=== PATIENT | female | born 1965 | race Caucasian/White ===

== ENCOUNTER 2017-05-22 07:17 | Inpatient (IN) | payer OTHER ==
--- NOTE | 2017-05-06 13:10 | HP ---
AMENDED REPORT NOW INCLUDES COSIGNER DESIGNATION - ESIGNED BEFORE ADJUSTMENTS CC: Dr. Emilie Clark * PREOPERATIVE HISTORY AND PHYSICAL: DATE OF PREOPERATIVE HISTORY AND PHYSICAL EXAMINATION: 05/05/17 DATE OF ADMISSION: 05/22/17 This patient is scheduled for AA admission by Dr. Chand on , 05/22/17. ATTENDING SURGEON: Catrachito Chand MD * (dictated by Jeny Grossman NP). CHIEF COMPLAINT: Recurrent left lung nodule. HISTORY OF PRESENT ILLNESS: The patient is a 51-year-old female recently evaluated by Dr. Chand for a new solitary left lung nodule. She is known to Dr. Chand status post left thoracoscopy with resection of left upper lobe lung nodule that was metastatic adenocarcinoma consistent with a primary of colon cancer in February 2014. She is status post laparoscopic sigmoid colectomy for colon cancer by Dr. Gomez in September 2011 followed by adjuvant chemotherapy. A CAT scan of the chest revealed a new lesion in the left upper lobe and a PET scan revealed that it is PET avid. She was presented at [facility] and the consensus of the group was that she should have resection of the lesion. She had one attempt at needle aspiration, which did not reveal definitive tumor. She has been followed by Dr. Clark and maintained on Xeloda chemotherapy. 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 She can go up and down two flights of stairs without stopping. She has never been a smoker. Dr. Chand has examined the patient and discussed the above findings with her and has recommended left thoracoscopy with wedge resection of the left lung nodule and possible open procedure. Dr. Chand discussed the nature of the surgical procedure, the rationale for the procedure, the relevant risks and benefits and today I reviewed the typical hospitalization, postoperative care and recovery and she has had a chance to ask questions and states that she is satisfied with the information. She will sign surgical consent on the day of surgery. PAST MEDICAL HISTORY: Significant for colon cancer status post laparoscopic sigmoid colectomy by Dr. Gomez, September 2011 followed by adjuvant chemotherapy. Laparoscopic ventral hernia repair by Dr. Gomez in June 2012 with removal of PowerPort at the same setting, left thoracoscopy with resection of left upper lobe lung nodule by Dr. Chand in February 2014 and replacement of PowerPort. Hypothyroidism. OB HISTORY: 1, para 1. She is up-to-date with breast exam, pelvic, and pap smear within the last year. She states that she gets menstrual periods about once a year. MEDICATIONS: 1. Levothyroxine 75 mcg p.o. daily. 2. Xeloda chemotherapy as ordered by Dr. Clark and she was instructed to hold the Xeloda one week preoperatively and one week postoperatively; she will take her last dose of Xeloda preoperatively on 05/14/17. 3. Vitamin D3 supplement daily. 4. Ativan 0.5 mg one tablet q.h.s. p.r.n. ALLERGIES: No known drug allergies. FAMILY HISTORY: No known anesthesia reactions, bleeding tendencies, or clotting disorders. SOCIAL HISTORY: She is and is self employed as seamstress; she is a life long nonsmoker. She denies the use of alcohol or other substances. REVIEW OF SYSTEMS: Constitutional: No fever, chills, night sweats, excessive fatigue, or weight loss. Endocrine: Denies diabetes, is treated for hypothyroidism. Hematologic: Denies easy bruising or bleeding. Denies any history of blood transfusions. Respiratory: Denies cough or dyspnea. Cardiovascular: No anginal chest pain or palpitations. Gastrointestinal: No nausea, vomiting, diarrhea, GI bleeding, or constipation. No change in bowel habits. Genitourinary: No dysuria. Musculoskeletal: No joint pain. No decreased range of motion. General: No history of deep vein thrombosis or pulmonary embolism, no history of anesthesia complications. PHYSICAL EXAMINATION GENERAL SURVEY: The patient is a 51-year-old female, well-developed and well- nourished, in no acute distress. VITAL SIGNS: Height 61.5 inches, weight 170 pounds. Body mass index 31.9. Blood pressure 122/88, pulse 85 and regular, respiratory rate 16, temperature 98.5 tympanic. HEENT: Benign. NECK: Supple. No cervical lymphadenopathy. No supraclavicular lymphadenopathy. LUNGS: Breath sounds bilaterally clear and equal. HEART: Regular rate and rhythm. No murmurs or rubs appreciated. ABDOMEN: Active bowel sounds. Multiple well healed surgical scars. Soft and nondistended. Nontender throughout. No obvious masses or organomegaly or evidence of ventral hernia. PELVIC: Deferred. RECTAL: Deferred. EXTREMITIES: Warm without edema or skin ulcerations. NEUROLOGIC: Alert and oriented x3. Steady gait. SKIN: Warm, dry, intact. IMPRESSION: Solitary left lung nodule. PLAN: AA admission to Dr. Chand's service on 05/22/17 for left thoracoscopy, wedge resection, possible open procedure. JENY GROSSMAN, CONTROL CLERK [id number]/[facility] #: [id number] NOEMI
[~2017-05-22 07:17] MED LIST: Buffered Lidocaine 0.9% SYRIN* 5 ML/SYR SYRINGE INTRADERM ONE; Famotidine IV* 10 MG/ML 2 ML (20 mg) IV ONE
[2017-05-22] MEDS ORDERED: Famotidine IV* 10 MG/ML 2 ML (20 mg) ONE (07:28)
[2017-05-22] MEDS ORDERED: ceFAZolin 2 GM (*##) 2 GM/100 ML BAG USE CEFA2SOL IVPB ONE (07:28)
[2017-05-22] MEDS ORDERED: Heparin VIAL(*) 5000 UNITS/ML VIAL (FIVE THOUSAND) ONE (07:28)
[2017-05-22] MEDS ORDERED: Bupivacaine 0.25% SDV* 30 ML ONE (08:03)
[2017-05-22] MEDS ORDERED: fentaNYL* 50 MCG/ML 5 ML VIAL (250 MCG VIAL) ONE (08:34)
[2017-05-22] MEDS ORDERED: Midazolam* 1 MG/ML 5 ML VIAL (5 MG) ONE (08:34)
[2017-05-22] MEDS ORDERED: Rocuronium* 10 MG/ML VIAL ONE ×2 (08:36→10:02)
[2017-05-22] MEDS ORDERED: Succinylcholine* 20 MG/ML 10 ML VIAL ONE (08:37)
[2017-05-22] MEDS ORDERED: Ketorolac INJ* 30 MG/ML 1 ML VIAL ONE (08:37)
[2017-05-22] MEDS ORDERED: Propofol* 10 MG/ML 20 ML BTL IV PUSH ONE ×2 (08:37→10:08)
[2017-05-22] MEDS ORDERED: Lidocaine 2% PF * 5 ML VIAL ONE (08:37)
[2017-05-22] MEDS ORDERED: DiMENhydriNATE IV* 50 MG/ML VIAL ONE (08:37)
[2017-05-22] MEDS ORDERED: Ondansetron INJ* 2 MG/ML VIAL ONE (08:37)
[2017-05-22] MEDS ORDERED: Dexamethasone IV* 4 MG/ML 1 ML (4 MG) ONE (08:37)
[2017-05-22] MEDS ORDERED: EPHEDrine (Pressors)* 50 MG/ML VIAL ONE (10:46)
[2017-05-22] MEDS ORDERED: HYDROmorphone INJ* 1 MG/ML CARPUJECT SYRINGE ONE (10:57)
[2017-05-22] MEDS ORDERED: Neostigmine Methylsulfate* 1 MG/ML 10 ML VIAL (1 mg/ml) ONE (11:01)
[2017-05-22] MEDS ORDERED: Glycopyrrolate IV* 0.2 MG/ML 1 ML VIAL ONE (11:01)
--- NOTE | 2017-05-22 11:15 | OP ---
Operative Report - Blank - Operative Report Date of Operation: 05/22/17 Note: Preop Dx: Left upper lobe mass Postop Dx: same Procedure: Thoracoscopy with wedge resection of Left upper lobe mass Anesthesia: GET Surgeon: Mannie Asst: SLAVA Keane; SLAVA Casper; LANA Frances Fluids: 1800ml RL EBL: < 50 ml Drains: 1 chest tube Specimen: wedge resection Left upper lobe mass Findings: dictated
[2017-05-22] MEDS ORDERED: Senna/Docusate (NF) TAB PO PRN (11:18)
[2017-05-22] MEDS ORDERED: LORazepam TAB(*) 0.5 MG PO PRN (11:18)
[2017-05-22] MEDS ORDERED: Naloxone* 0.4 MG/ML 1 ML VIAL IV PRN (11:21)
[2017-05-22] MEDS ORDERED: oxyCODONE/Acetamin 5/325 MG* TAB PO PRN (11:21)
[2017-05-22] MEDS ORDERED: DiMENhydriNATE IV* 50 MG/ML VIAL IV PUSH PRN (11:21)
[2017-05-22] MEDS ORDERED: HYDROmorphone INJ* 2 MG/ML CARPUJECT SYRINGE ONE (11:45)
[2017-05-22] MEDS: HYDROmorphone INJ* 1 MG/ML CARPUJECT SYRINGE IV PRN ×2 (11:47→11:53)
[2017-05-22] MEDS ORDERED: Acetaminophen IV 1GM/100ML * 1,000 MG/100 ML VIAL IVPB ONE (11:48)
[2017-05-22] MEDS ORDERED: oxyCODONE TAB* 5 MG TAB PO PRN (11:49)
[2017-05-22] MEDS ORDERED: Acetaminophen IV 1GM/100ML * 100 ML ONE (11:51)
[2017-05-22] MEDS ORDERED: Morphine PCA ADULT* 5 MG/ML 30 ML PCA SCH (12:00)
--- NOTE | 2017-05-22 12:42 | RAD ---
HISTORY: Status post left VATS, chest tube placement COMPARISONS: Chest CT dated March 24, 2017 VIEWS: 1: frontal portable view of the chest at 11:55 AM FINDINGS: LINES AND TUBES: A right-sided chest port is noted with the tip overlying the right atrium. A left-sided chest tube is noted. CARDIOMEDIASTINAL SILHOUETTE: There is widening of the upper mediastinum which likely reflects postsurgical change after VATS. PLEURA: The costophrenic angles are sharp. There is no appreciable pneumothorax.. LUNG PARENCHYMA: There is linear opacification of the right lung base. ABDOMEN: The upper abdomen is clear. There is no subphrenic gas. BONES AND SOFT TISSUES: No bone or soft tissue abnormalities are noted. IMPRESSION: 1. LINES AND TUBES ABOVE. 2. THERE IS WIDENING OF UPPER MEDIASTINUM WHICH IS LIKELY POSTSURGICAL SECONDARY TO RESECTION OF A NODULE OF THE LEFT MEDIAL LUNG APEX. RECOMMEND ATTENTION ON FOLLOW-UP IMAGING. IF THERE IS CLINICAL CONCERN FOR AORTIC INJURY, CONSIDER CT ANGIOGRAPHY OF THE CHEST.
[2017-05-22] MEDS ORDERED: Senna TAB PO PRN (12:54)
[2017-05-22] MEDS ORDERED: Docusate CAP* 100 MG PO PRN (12:54)
--- NOTE | 2017-05-23 01:43 | OP ---
CC: Dr. Emilie Clark * DATE OF OPERATION: 05/22/17 - ROOM #341 DATE OF : 65 SURGEON: Catrachito Chand MD ASSISTANTS: 1. SLAVA Hoskins 2. SLAVA Johnson ANESTHESIOLOGIST: Loida Alcala MD ANESTHESIA: General anesthetic, local infiltration, and intercostal nerve block. PRE-OP DIAGNOSIS: Solitary nodule of left upper lobe, probable metastatic nodule. POST-OP DIAGNOSIS: Solitary nodule of left upper lobe, probable metastatic nodule. OPERATIVE PROCEDURE: Videothoracoscopic wedge resection of left upper lobe nodule. DESCRIPTION OF PROCEDURE: The patient was supine on the operative table. After adequate general anesthetic and double lumen intubation, fiberoptic bronchoscopy was carried out and confirmed proper positioning of the tube. She was then turned to the lateral decubitus position with the left chest up and all pressure points were appropriately padded and she was secured to the table. The left chest was prepped with antiseptic, draped in a sterile fashion. Local infiltrative anesthesia was administered and approximately 2-cm incision was created in the lateral chest, little bit superior to the previous incision. Additional cannulae, 5-mm anterior and posterior, were placed, and then an additional 5 mm was placed as well. The site was examined and there was scarring from the previous resection. I did make one of the incisions larger to let my finger to manipulate the lung and confirmed where the nodule. Then, the EndoGIA stapler with the reinforced black load was utilized, 2 firings of that, and then a purple reinforced to complete the resection. The specimen was removed and sent in formalin for pathologic evaluation. It was a wedge resection of the left upper lobe. The staple line was carefully examined and was in excellent condition. Hemostasis was excellent at the staple line. Irrigation was carried out, free fluid suctioning, and again hemostasis confirmed. The 32-Kazakh chest tube was placed and the tip was at the apex, additional side holes were cut. It was sutured to the skin with 2-0 Prolene. The one large incision of the muscle closed with 2-0 Vicryl and 5-0 Vicryls used for the skin in the remainder of cases. Intercostal nerve block had been carried out under direct vision as well. The chest tube was hooked to Pleur- evac suction. She tolerated the procedure well, was awakened, and brought to Recovery in good condition. No complications. Drain was 32-Kazakh chest tube. Sponge and instrument counts were correct. Estimated blood loss less than 100 mL. [id number]/[facility] #: [id number] [facility] HOSPITALNicole
[2017-05-23] MEDS: Acetaminophen TAB* 325 MG PO PRN ×2 (03:49→09:25)
[2017-05-23] MEDS: Levothyroxine TAB* 25 MCG TAB PO SCH (05:07)
--- NOTE | 2017-05-23 08:24 | PN ---
Progress Note - Progress Note Date of Service: 05/23/17 Note: POD#1 left VATS Afeb, VS OK UO large, No N/V, jaycee some po's Pain control OK CT drainage 150ml, serosang No air leak Breathing OK, decreased on left Check CXR this AM Poss home 05/24 if drainage remains low
[2017-05-23] MEDS: Omeprazole CAP* 20 MG PO SCH (09:20)
--- NOTE | 2017-05-23 09:25 | RAD ---
INDICATION: Status post VATS and chest tube placement. COMPARISON: Comparison is made with a prior CT of the chest from March 24, 2017 and prior chest x-ray study from May 22, 2001. TECHNIQUE: A portable view of the chest was obtained. FINDINGS: There is a power port central venous catheter present. The catheter tip projects over the right atrium. The heart is within normal limits in size. There is a chest tube present on the left side. The catheter tip projects at the left lung apex. There is increased density overlying the medial aspect of the left upper lobe which appears unchanged. No pneumothorax is appreciated. No pleural effusion is seen. IMPRESSION: POSTSURGICAL CHANGES, CHEST TUBE IN PLACE INCREASED DENSITY OVERLYING THE LEFT UPPER LOBE, UNCHANGED.
[2017-05-23] MEDS: Ondansetron INJ* 2 MG/ML VIAL IV PRN (12:08)
[2017-05-24] MEDS ORDERED: LORazepam INJ* 2 MG/ML 1 ML VIAL ONE (05:44)
--- NOTE | 2017-05-24 06:09 | PN ---
Progress Note - Progress Note Date of Service: 05/24/17 Note: CAT response Mrs Pillai is a 51YO female HX adenoCA of the colon metastatic to lung for which she underwent a L lung wedge resection 05/22. This AM she was getting up to the restroom and developed sudden onset sharp/stabbing L chest pain worse with inspiration. Upon arrival, she was sitting in a chair appearing anxious and splinting her respirations 2nd pain. Vitals were stable, excepting an saO2 of 89% (nursing reports lowest was 82%). 1mg IV lorazepam was ordered with good effect objectively with Mrs Pillai appearing much calmer with noticeably less splinting. Lungs are clear B, though very shallow. CV is RRR, slightly tachycardic in the very low 100s. Abdomen is soft, non-tender, non-distended. SaO2 spontaneously improved to the low 90s and further to the high 90s on 4L NC. CXR shows the chest tube in good position, no significant pneumothorax. Pleurvax appears to be functioning normally. Case reviewed with Jose De Jesus Gomez MD surgery on-call who will follow up with her this AM. While she is at risk for DVT/PE, my clinical concern for this is rather low. However, as this would be a serious complication, will check CTA chest.
[2017-05-24] MEDS ORDERED: Iohexol 350* (CONTRAST) 500 ML MDV IV ONE (06:48)
[2017-05-24] MEDS: Omeprazole CAP* 20 MG PO SCH (07:23)
[2017-05-24] MEDS: Levothyroxine TAB* 25 MCG TAB PO SCH (07:23)
--- NOTE | 2017-05-24 07:32 | RAD ---
HISTORY: Postop chest pain, hypoxia COMPARISONS: March 24, 2017 TECHNIQUE: Multiple contiguous axial CT scans of the chest were obtained after the administration of nonionic intravenous contrast, timed to the pulmonary arterial phase of contrast enhancement.. Coronal and sagittal multiplanar reformations are also submitted for review. FINDINGS: Evaluation is limited by patient breathing motion artifact which limits evaluation of the subsegmental pulmonary arterial branches of the lung bases bilaterally. NECK AND THYROID: The lower neck and thyroid are unremarkable. CHEST WALL: There is no lower cervical, axillary, or supraclavicular lymphadenopathy by size criteria. A right-sided chest port is noted. There is subcutaneous emphysema along the left chest HEART AND PERICARDIUM: The heart is unremarkable. AORTA AND PULMONARY VASCULATURE: The aorta and pulmonary vasculature are normal. MEDIASTINUM: There is no mediastinal lymphadenopathy by size criteria. MOISES: There is no hilar lymphadenopathy by size criteria. AIRWAY AND ESOPHAGUS: The airway is unremarkable, without endobronchial filling defect. The esophagus is grossly normal. LUNG PARENCHYMA: There is rounded atelectasis of the left upper lung. There is linear atelectasis of the right lower lung and left lower lung. PLEURA: There is a small left-sided pneumothorax. A left-sided chest tube is noted. UPPER ABDOMEN: There is a small sliding hiatal hernia. There is fatty infiltration of the liver. BONES AND SOFT TISSUES: Mild degenerative changes are noted. OTHER: None. IMPRESSION: 1. NO PULMONARY ARTERIAL FILLING DEFECT TO SUGGEST PULMONARY EMBOLISM. 2. MULTIFOCAL ATELECTASIS OF THE LUNGS BILATERALLY. 3. SMALL LEFT-SIDED PNEUMOTHORAX WITH LEFT-SIDED CHEST TUBE AND SUBCUTANEOUS EMPHYSEMA
--- NOTE | 2017-05-24 08:11 | RAD ---
HISTORY: Shortness of breath, chest pain at chest tube site COMPARISONS: May 23, 2017, CT dated May 24, 2017 VIEWS: 1: frontal portable view of the chest at 6:00 AM FINDINGS: LINES AND TUBES: A right-sided chest port is noted with tip overlying the cavoatrial junction. Left-sided chest tube is noted. CARDIOMEDIASTINAL SILHOUETTE: The cardiomediastinal silhouette is normal for portable technique. PLEURA: There is minimal pleural thickening of the left lung apex.. The small pneumothorax noted on CT is not well visualized on the current examination. LUNG PARENCHYMA: There is atelectasis of the left upper lung, likely postsurgical based on comparison to the accompanying CT examination. There is minimal linear opacification of the right lung base. ABDOMEN: The upper abdomen is clear. There is no subphrenic gas. BONES AND SOFT TISSUES: No bone or soft tissue abnormalities are noted. IMPRESSION: 1. LINES AND TUBES ABOVE. 2. LINEAR ATELECTASIS OF THE RIGHT LUNG BASE. POST SURGICAL CHANGE TO THE LEFT UPPER LUNG
[2017-05-24] MEDS ORDERED: oxyCODONE TAB* 5 MG TAB PO PRN (08:44)
--- NOTE | 2017-05-24 08:53 | PN ---
Progress Note - Progress Note Date of Service: 05/24/17 SOAP: Subjective: Events of last night noted. She feels better and has less pain. She denies SOB. She feels tired. Objective: Vital Signs Temp 100.4 F 05/24/17 07:41 Pulse 88 05/24/17 07:41 Resp 20 05/24/17 08:08 BP 99/51 05/24/17 07:41 Pulse Ox 95 05/24/17 08:08 Gen: sleeping in chair, arousable. Chest: CTA B no w/r/r; CT intact with no A/L; dressing changed. Incisions c/d/i; no erythema. Intake & Output 05/23/17 05/24/17 05/24/17 18:59 06:59 18:59 Intake Total 100 1220 Output Total 820 560 Balance -720 660 Weight 175 lb Intake: IV Fluids 100 500 LR 100 500 Oral 720 Output: Chest Tube #1 20 60 Urine [address] o/s=174ms/12h. Imaging studies reviewed by me. No signif PTX. No PE. Chest tube in good position. Assessment: POD#2 s/p VATS rsxn L lung mass. Stable. CAT team for L chest pain likely due to chest tube. Postop pain control can be improved. Plan: Will add oxycodone. Cont chest tube.
[2017-05-24] MEDS: Docusate CAP* 100 MG PO SCH ×2 (10:55→21:59)
[2017-05-24] MEDS: Magnesium Hydroxide LIQ* 30 ML UDC PO PRN ×2 (10:55→21:59)
[2017-05-24] MEDS: Acetaminophen TAB* 325 MG PO PRN (18:48)
[2017-05-24] MEDS: Ondansetron INJ* 2 MG/ML VIAL IV PRN (20:06)
[2017-05-25] MEDS: Acetaminophen TAB* 325 MG PO PRN ×2 (04:23→19:52)
[2017-05-25] MEDS: Levothyroxine TAB* 25 MCG TAB PO SCH (06:20)
[2017-05-25] MEDS: Docusate CAP* 100 MG PO SCH ×2 (07:52→21:45)
[2017-05-25] MEDS: Omeprazole CAP* 20 MG PO SCH (07:52)
--- NOTE | 2017-05-25 10:31 | PN ---
Progress Note - Progress Note Date of Service: 05/25/17 SOAP: Subjective: pt seen and examined. Feels better today. oral narcotics lead to nausea. Pt still has some L chestpain. tolerating diet We walked 1/2 lap and pt was short of breath with O2 sat in low 80s, and respnded quickly to O2 supplementation Objective: afvss uo good a and ox3, nad lungs decre BS b/l worse at L base Chest tube: output 220cc/24 hrs, no airleak ext: wnl Chest CT reviewed Assessment: POD3 VATS,path pending, respiratory compromise Plan: continue O2 NC chest tube off suction pain control with IV narcotics for 24 more hrs
[2017-05-25] MEDS: Magnesium Hydroxide LIQ* 30 ML UDC PO PRN ×2 (11:39→21:45)
[2017-05-25] MEDS: Heparin VIAL(*) 5000 UNITS/ML VIAL (FIVE THOUSAND) SUBCUT SCH ×2 (13:53→21:49)
[2017-05-25] MEDS: Ondansetron INJ* 2 MG/ML VIAL IV PRN ×2 (15:35→21:47)
[2017-05-25] MEDS: Cyclobenzaprine TAB* 10 MG PO SCH (17:52)
[2017-05-26] MEDS: Acetaminophen TAB* 325 MG PO PRN ×3 (06:18→19:19)
[2017-05-26] MEDS: Heparin VIAL(*) 5000 UNITS/ML VIAL (FIVE THOUSAND) SUBCUT SCH ×3 (06:19→22:19)
[2017-05-26] MEDS: Levothyroxine TAB* 25 MCG TAB PO SCH (06:19)
[2017-05-26] MEDS: Omeprazole CAP* 20 MG PO SCH (08:46)
[2017-05-26] MEDS: Docusate CAP* 100 MG PO SCH ×2 (08:47→20:37)
[2017-05-26] MEDS ORDERED: Bisacodyl SUPP* 10 MG SUPP PR PRN (09:03)
--- NOTE | 2017-05-26 09:10 | PN ---
Progress Note - Progress Note Date of Service: 05/26/17 Note: POD#4 s/p left VATS Afeb, VS OK. Still using O2 UO OK. Jaycee po's. Still no BM CT level 800 ml, serous (170 ml/24hr.) No air leak. Lungs clear. BS still decreased/splinting. Await decreased drainage Stim BM Check CXR Await path D/C CONDUIT BENDER, heplock Wean O2 as jaycee.
--- NOTE | 2017-05-26 10:51 | RAD ---
Indication: Status post video assisted fluoroscopy. Comparison is made with previous exam dated May 24, 2017. 2 views the chest including dual energy PA views demonstrates left chest tube in place. Central line is in place. Right basilar atelectasis is noted. Small to moderate left pneumothorax is noted. IMPRESSION: Left chest tube in place. Small to moderate left pneumothorax is noted.
[2017-05-26] MEDS: oxyCODONE TAB* 5 MG TAB PO PRN ×2 (11:45→19:19)
--- NOTE | 2017-05-26 13:28 | PN ---
Progress Note - Progress Note Date of Service: 05/26/17 Note: CXR shows ptx. No cough air leak, tho' a klein of air when resuming suction. Will leave on suction.
[2017-05-26] MEDS: Cyclobenzaprine TAB* 10 MG PO SCH (17:30)
[2017-05-27] MEDS: Levothyroxine TAB* 25 MCG TAB PO SCH (05:46)
[2017-05-27] MEDS: oxyCODONE TAB* 5 MG TAB PO PRN ×3 (05:46→15:25)
[2017-05-27] MEDS: Heparin VIAL(*) 5000 UNITS/ML VIAL (FIVE THOUSAND) SUBCUT SCH ×2 (05:48→13:43)
[2017-05-27] MEDS: Omeprazole CAP* 20 MG PO SCH (07:59)
[2017-05-27] MEDS: Docusate CAP* 100 MG PO SCH (08:00)
[2017-05-27] MEDS: Acetaminophen TAB* 325 MG PO PRN ×2 (08:02→15:25)
--- NOTE | 2017-05-27 08:03 | PN ---
Progress Note - Progress Note Date of Service: 05/27/17 Note: Surgery Progress: S: POD #5. Feels better each day. No resp c/o. Theo diet; +BM. O: Vital Signs - 8 hr 05/27/17 05/27/17 05/27/17 00:32 03:31 05:46 Temperature 98.6 F 98.6 F Pulse Rate 65 73 Respiratory 16 18 16 Rate Blood Pressure 113/70 124/67 (mmHg) O2 Sat by Pulse 98 98 Oximetry 05/27/17 05/27/17 07:44 08:00 Temperature 97.9 F Pulse Rate 72 Respiratory 17 16 Rate Blood Pressure 120/73 (mmHg) O2 Sat by Pulse 99 Oximetry Heart: reg Lungs: clear BS bilat; no air leak on pleurevac (new pleurevac since last pm; currently 110 ml light serous drainage) Path: pend A: s/p L VATS for segmental rsxn, improving P: chest xray pend for this a.m.
--- NOTE | 2017-05-27 09:52 | RAD ---
Indication: Status post video-assisted thorascopic surgery left chest. 2 views of the chest are reviewed. Central line is in place. There is left chest tube in place. Previously described left pneumothorax is no longer present. Left chest tube remains in place. Central line is in place. IMPRESSION: Left chest tube remains in place. No pneumothorax is noted.
[2017-05-27 11:55] VITALS: BP 109/70
--- NOTE | 2017-05-27 15:07 | PN ---
Progress Note - Progress Note Date of Service: 05/27/17 Note: Patient seen and examined with Dr. Chand present. Reports doing well, would like to go home. CT with leak, has been on water seal past 2 hours. Chest tube d/c'ed, dressing applied. D/C to home today, F/U next week as outpatient. Please refer to dicated discharge summary.
--- NOTE | 2017-05-28 13:12 | DS ---
AMENDED REPORT NOW INCLUDES COSIGNER DESIGNATION - ESIGNED BEFORE ADJUSTMENT CC: Emilie Clark MD * DISCHARGE SUMMARY: DATE OF ADMISSION: 05/22/17 DATE OF DISCHARGE: 05/27/17 ADMISSION DIAGNOSES: 1. History of metastatic colon cancer. 2. Left lung nodule. 3. Left pneumothorax. DISCHARGE DIAGNOSES: 1. History of metastatic colon cancer. 2. Left lung nodule. 3. Left pneumothorax. ADMITTING PHYSICIAN: Catrachito Chand MD * (DICTATED BY SLAVA REYNOLDS) CONSULTATIONS: Colten Helms MD PROCEDURES: Left VATS with left lung wedge resection on 05/22/17. BRIEF MEDICAL HISTORY: Mrs. Durant is a pleasant 51-year-old female who was admitted through day surgery on 05/22/17 in anticipation for left VATS with left lung wedge resection. She is known to us from prior history of metastatic colon cancer for which she had a similar left lung nodule that was resected back in 2013. The patient has been doing relatively well since then. During the routine follow- up exams and imaging, she was found to have another nodule highly suspicious for metastasis on the left lung. She initially had a fine needle aspiration with biopsy of the suspicious mass that revealed no evidence of malignancy; however, the case was discussed during tumor board meeting and given her high risk and suspicion for metastatic disease, we discussed with her proceeding with left video assisted thoracoscopy with a left lung wedge resection to get this mass out. HOSPITAL COURSE: The patient was admitted on the same day and was taken to the operating room. She underwent a left VATS with left lung wedge resection on 11/01 that was essentially unremarkable. After recovery, she went to the surgical floor for observation. She did relatively well with only mild incisional discomfort and some pain surrounding the chest tube on the left lung. She had some serous drainage from the Pleur-evac measuring approximately 150 cc on the first day postop. She was afebrile and was ambulatory with good pain control. Her exam was unremarkable with good lung expansion with some decreased breath sounds on the left side. Chest x-ray was checked on a daily basis and there was only evidence of very small pneumothorax on the left side on the first day. The patient was initially thought to be discharged home on the following day. However, on 05/24/17 in the electrical prospector hours, she developed sudden onset of chest pain and shortness of breath. She was found to be tachycardic as well for which a quick response team was evaluating the patient and she was taken downstairs for a chest CT angiography to rule out any evidence of pulmonary embolism. Her clinical status eventually improved and her CT scan of the chest showed no evidence of pulmonary embolism. She was kept in the hospital for observation for another couple of nights. She felt better on a daily basis and her pain was well controlled using oral narcotics. She was taking Zofran in addition to control her nausea. Her oxygen saturation maintained and well controlled; however, it got as low as mid 80s that responded quickly to O2 supplementation. Her chest tube was examined on a daily basis and she continued to express a low volume of serous output on a daily basis. On the discharge morning, she continued to improve and was doing very well. The chest tube was taken from wall suction to water seal for a couple of hours and reviewed after that and there was no evidence of chest tube leakage. Chest tube was eventually discontinued and occlusive dressing was applied. The patient was advised to keep dressing in place for 2 days before she removes it and may shower after that. Her chest x-ray this morning showed no evidence of left pneumothorax and the patient will be discharged home today and will be seen in the office next week for a followup. DISCHARGE MEDICATIONS: Her discharge medications include: 1. Xeloda 500 mg 2 tablets p.o. b.i.d. 2. Vitamin D3, 1 tablet q.p.m. 3. Flexeril 10 mg q.p.m. as needed for muscle stiffness. 4. Synthroid 75 mcg p.o. daily. 5. Lidocaine patches 1 application topically daily. 6. Ativan 0.5 mg 1 tablet q.6 hours as needed for anxiety. 7. Prilosec 20 mg p.o. daily. 8. Zofran 4 mg ODT 1 tablet q.6 hours as needed for nausea. 9. Percocet 5/325, 1 to 2 tablets q.6 hours as needed for pain. 10. Senna 1 tablet p.o. daily as needed for constipation. PROBLEM LIST: Metastatic colon cancer with left lung mass, status post video assisted thoracoscopy with left lung wedge resection on 05/22/17. SLAVA REYNOLDS [id number]/[facility] #: [id number] NOEMI
== END 2017-05-27 15:40 | disposition home or self-care (01) | DRG 164 ==
LOC: OR 07:17 → SSU 12:46
PROVIDERS: ADMIT Surgery; ATTEND Surgery
PROC: 0BBG4ZZ Excision of Left Upper Lung Lobe, Percutaneous Endoscopic Approach (ICD-10-PCS; principal; 2017-05-26)
DX: C78.02 Secondary malignant neoplasm of left lung (principal); J93.9 Pneumothorax, unspecified; G62.9 Polyneuropathy, unspecified; R91.1 Solitary pulmonary nodule; E03.9 Hypothyroidism, unspecified; K21.9 Gastro-esophageal reflux disease without esophagitis; Z85.038 Personal history of other malignant neoplasm of large intestine; Z90.49 Acquired absence of other specified parts of digestive tract; Z92.21 Personal history of antineoplastic chemotherapy; R07.9 Chest pain, unspecified; R06.02 Shortness of breath; R00.0 Tachycardia, unspecified; R11.0 Nausea
CPT/HCPCS: 71045; 71046; 71275; 81025; 88307; 88341; 88342; A9270-GY; J0330; J1100; J1170; J1240; J1644; J1885; J2060; J2250; J2270; J2405; J2704; J2710; J3010; Q9967